=== PATIENT | male | born 1980 | race Caucasian/White ===

== ENCOUNTER 2016-06-20 14:16 | Inpatient (IN) | payer OTHER ==
[~2016-06-20] VITALS: Ht 172.7 cm; Wt 63.5 kg
[~2016-06-20 14:16] MED LIST: TRAMADOL HCL50 M1 PO; ZOFRAN ODT4 M1 PO
--- NOTE | 2016-06-20 14:36 | NUR ---
NOT IN WAITING ROOM WHEN CALLED FOR TRIAGE
--- NOTE | 2016-06-20 14:41 | NUR ---
35 Y/O MALE C/O LLQ PAIN SINCE LAST NIGHT. DENIES N/V/D. DENIES URINARY SYMPTOMS. AFEBRILE. PT NOTED TO HAVE ICED TEA - ADVISED TO REMAIN NPO UNTIL PROVIDER EVAL
--- NOTE | 2016-06-20 16:27 | NUR ---
PT IN ROOM 7. CHUCK RAMON IN TO SEE PT. PT ALREADY CHANGED INTO HOSP GOWN
--- NOTE | 2016-06-20 16:42 | NUR ---
LABS DRAWN AND SENT BY THIS [facility] ([facility],[place])
[2016-06-20 16:51] LABS: ABSOLUTE BASOPHIL COUNT 0.1 /CUMM (0.0-0.2); ABSOLUTE EOSINOPHIL COUNT 0.1 /CUMM (0.0-0.7); ABSOLUTE GRANULOCYTE CT 10.5 /CUMM (1.4-6.5); ABSOLUTE LYMPH COUNT 1.9 /CUMM (1.2-3.4); ABSOLUTE MONOCYTE COUNT 0.6 /CUMM (0.10-0.60); BASOPHIL % 0.7 % (0.0-2.0); EOSINOPHIL % 0.5 % (0-5); GRANULOCYTE % 80.3 % (42.2-75.2); HEMATOCRIT 46.7 % (42-52); MEAN CORPUSCULAR HGB 31.1 PG (27.0-31.0); MEAN CORPUSCULAR HGB CONC 34.1 G/DL (33.0-37.0); MEAN CORPUSCULAR VOLUME 91.2 FL (80.0-94.0); MEAN PLATELET VOLUME 7.6 FL (7.4-10.4); PLATELET COUNT 243 /CUMM (130-400); RBC DISTRIBUTION WIDTH 13.4 % (11.5-14.5); RED BLOOD CELL CT 5.12 /CUMM (4.70-6.10); WHITE BLOOD CELL COUNT 13.1 /CUMM (4.8-10.8)
--- NOTE | 2016-06-20 17:29 | NUR ---
IV STARTED. NS BOLUS STARTED, MAALOX AND PEPCID GIVEN.
--- NOTE | 2016-06-20 18:09 | NUR ---
PT INFORMED HE IS GOING TO BE ADMITTED FOR PANCREATITIS. GIVEN SECOND BAG OF IVF AND MORPHINE FOR PAIN.
--- NOTE | 2016-06-20 18:20 | ED GENERAL ADULT ---
History of Present Illness General Chief Complaint: Abdominal Pain/Flank Pain Stated Complaint: L SIDE ABD PAIN Source: patient Exam Limitations: no limitations Vital Signs & Intake/Output Vital Signs & Intake/Output Vital Signs Date Time Temp Pulse Resp B/P B/P Pulse O2 O2 Flow FiO2 Mean Ox Delivery Rate 06/21 0644 98.8 78 20 110/70 98 Room Air 06/21 0600 98.8 78 20 110/70 /16 0259 98.7 67 20 110/70 98 Room Air 06/21 0200 98.7 67 20 110/70 06/20 2115 97.8 84 18 124/60 99 Room Air 06/20 2059 97.9 69 16 144/89 98 Room Air 06/20 1808 99.1 73 18 141/82 100 Room Air 06/20 1730 Room Air 06/20 1440 97.7 108 16 125/83 98 Room Air ED Intake and Output 06/21 0000 06/20 1200 Intake Total 1250 Output Total Balance 1250 Intake, IV 1010 Intake, Oral 240 Patient 140 lb Weight Weight Reported by Patient Measurement Method Allergies Coded Allergies: NO KNOWN ALLERGIES (07/09/12) Reconcile Medications Loratadine 10 MG TABLET 1 TAB PO DAILY PRN ALLERGIES (Reported) Naltrexone Microspheres (Vivitrol) 380 MG JESUS.ER.REC 1 TAB PO Q30D HEROIN ADDICTION (Reported) Triage Note: 35 Y/O MALE C/O LLQ PAIN SINCE LAST NIGHT. DENIES N/V/D. DENIES URINARY SYMPTOMS. AFEBRILE. PT NOTED TO HAVE ICED TEA - ADVISED TO REMAIN NPO UNTIL PROVIDER EVAL Triage Nurses Notes Reviewed? yes HPI: 35-year-old male with past medical history of EtOH abuse and pancreatitis presenting with diffuse abdominal pain worse in the left lower quadrant since last night. Denies fevers, nausea, vomiting, diarrhea, dysuria. Reports Prior episodes of his pancreatitis presenting in a similar manner. Denies history of EtOH withdrawal or seizures, last EtOH use yesterday. (CHUCK WAKEFIELD PA-C) Past History Travel History Traveled to [place] past 21 day No Medical History Any Pertinent Medical History? see below for history Neurological: NONE EENT: allergies Cardiovascular: NONE Respiratory: asthma Gastrointestinal: pancreatitis Hepatic: NONE Renal: NONE Musculoskeletal: NONE Psychiatric: alcohol dependence Endocrine: NONE Blood Disorders: NONE Cancer(s): NONE Surgical History Surgical History: non-contributory Psychosocial History What is your primary language Malay Tobacco Use: Current Daily Use Daily Tobacco Use Amount/Type: => 5 Cigarettes daily Family History Hx Contributory? No (ASHU PAEZ,CHUCK) Review of Systems Review of Systems Constitutional: Denies: chills, fever. Respiratory: Reports: no symptoms. Cardiovascular: Reports: no symptoms. GI: Reports: abdominal pain. Denies: diarrhea, nausea, vomiting. Genitourinary: Denies: dysuria. (CHUCK WAKEFIELD PA-C) Physical Exam Physical Exam General Appearance: well developed/nourished, no apparent distress Respiratory: normal breath sounds, lungs clear Cardiovascular: regular rate/rhythm Gastrointestinal: normal bowel sounds, soft, tenderness (diffuse, no rebound/ guarding) Core Measures ACS in differential dx? No CVA/TIA Diagnosis: No Severe Sepsis Present: No Septic Shock Present: No (CHUCK WAKEFIELD PA-C) Progress Differential Diagnoses I considered the following diagnoses in my evaluation of the patient: [ Gastroenteritis versus pancreatitis versus biliary versus appendicitis versus colitis UTI versus diverticulitis. (] Plan of Care: Orders Procedure Date/time Status Regular Diet 06/21 B Active LIPASE 06/21 0600 Complete BASIC ELECTROLYTES PLUS BUN&CR 06/21 0600 Complete SOCIAL WORK CONSULT 06/21 UNK Active PSYCHIATRIC CONSULT 06/21 UNK Active Clear Liquid Diet 06/20 D Complete Vital Signs 06/20 2125 Complete Teach/Educate 06/20 2125 Active Pain Treatment and Response 06/20 2125 Active Nutritional Intake, Monitor 06/20 2125 Active Isolation 06/20 2125 Active Intake & Output 06/20 2125 Complete Patient Care Conference 06/20 2125 Active Activity/Ambulation 06/20 2125 Active Pathway - chart 06/20 2038 Active Pathway - chart 06/21 2027 Active House Staff 06/21 2027 Active Code Status 06/21 2027 Active Patient Data 06/20 2022 Active Patient Data 06/20 1923 Active Admit to inpatient 06/20 1800 Active Vital Signs 06/20 1800 Active Code Status 06/20 1800 Complete MAGNESIUM 06/20 1641 Complete CULTURE,URINE 06/20 1632 Active URINALYSIS 06/20 1632 Complete LIPASE 06/20 1632 Complete COMPREHENSIVE METABOLIC PANEL 06/20 1632 Complete CBC WITHOUT DIFFERENTIAL 06/20 1632 Complete Intake & Output 06/20 1628 Active Lab Add-on Test 06/20 UNK Active VTE Mechanical Prophylaxis 06/20 UNK Active CIWA 06/20 UNK Complete CIWA 06/20 UNK Active Current Medications Sig/Belle Start time Last Medication Dose Stop Time Status Admin Hydromorphone HCl 2 MG Q6P PRN 06/21 0900 AC (Dilaudid) Lorazepam 0 Q1P PRN 06/21 0845 AC (Ativan) Heparin Sodium 5,000 UNIT Q8 06/20 2200 AC 06/21 (Porcine) 0501 Nicotine 21 MG DAILY 06/20 2150 AC 06/20 (Nicoderm) 2322 Acetaminophen 650 MG Q6P PRN 06/20 2045 AC 06/21 (Tylenol) 0804 Cyanocobalamin/ 1 BAG DAILY 06/20 2026 AC 06/21 Thiamine/Pyridoxine 06/22 1759 0105 (Vitamin in I.V.) Sodium Chloride 1,000 ML (Normal Saline 0.9%) Laboratory Tests 06/21/16 0645: Anion Gap 11, Estimated GFR > 60, BUN/Creatinine Ratio 10.0, Lipase 1435 H 06/20/16 1830: Urine Color YEL, Urine Clarity CLEAR, Urine pH 6.5, Ur Specific [place] 1.010, Urine Protein NEG, Urine Ketones NEG, Urine Nitrite NEG, Urine Bilirubin NEG, Urine Urobilinogen 0.2, Ur Leukocyte Esterase NEG, Ur Microscopic EXAM NOT REQUIRED, Urine Hemoglobin NEG, Urine Glucose NEG 06/20/16 1641: Anion Gap 8, Estimated GFR > 60, BUN/Creatinine Ratio 15.0, Glucose 99, Calcium 8.9, Magnesium 1.8, Total Bilirubin 0.8, AST 31, ALT 46, Alkaline Phosphatase 93 , Total Protein 6.8, Albumin 4.0, Globulin 2.8, Albumin/Globulin Ratio 1.4, Lipase 1530 H, CBC w Diff NO MAN DIFF REQ, RBC 5.12, MCV 91.2, MCH 31.1 H, RDW 13.4, MPV 7.6, Gran % 80.3 H, Lymphocytes % 14.2 L, Monocytes % 4.3, Eosinophils % 0.5, Basophils % 0.7, Absolute Granulocytes 10.5 H, Absolute Lymphocytes 1.9, Absolute Monocytes 0.6, Absolute Eosinophils 0.1, Absolute Basophils 0.1, PUBS MCHC 34.1 Microbiology 05/15 1830 URINE ROUT: Urine Culture - RECD Lipase elevated to 1530. Given 2 L of normal saline, Zofran, morphine. Patient instructed to remain nothing by mouth. Will admit to general medicine. (CHUCK WAKEFIELD PA-C) Initial ED EKG: none (CHUCK WAKEFIELD PA-C) Departure Departure Disposition: STILL A PATIENT Condition: Stable Clinical Impression Primary Impression: Pancreatitis Referrals: SIVA SAEED,PAIGE Reyes (PCP/Family) Departure Forms: Customer Survey General Discharge Information Admission Note Spoke With: CALLUM BRICE MD Documentation of Exam: Documentation of any treatments & extenuating circumstances including Concerns Regarding Discharge (functional status, medication knowledge or non-compliance, living conditions, etc.) that warrant an admission rather than observation: [IV fluids, IV pain control, serial lipase levels.] (CHUCK WAKEFIELD PA-C) PA/BUSINESS UNIT LEADER Co-Sign Statement Statement: ED Attending supervision documentation- [] I saw and evaluated the patient. I have also reviewed all the pertinent lab results and diagnostic results. I agree with the findings and the plan of care as documented in the PA's/BUSINESS UNIT LEADER's documentation. [X] I have reviewed the ED Record and agree with the PA's/BUSINESS UNIT LEADER's documentation. [] Additions or exceptions (if any) to the PAs/BUSINESS UNIT LEADER's note and plan are summarized below: [] (MUKUL GHOSH DO) Critical Care Note Critical Care Note Critical Care Time: non-applicable (CHUCK WAKEFIELD PA-C)
--- NOTE | 2016-06-20 18:29 | NUR ---
PT UP TO RESTROOM TO PROVIDE URIEN SPECIMEN. DENIES PAIN RELIEF AFTER MORPHINE
[2016-06-20] MEDS ORDERED: VIVITROL PO (18:59)
[2016-06-20] MEDS ORDERED: LORATADINE10 M1 PO (18:59)
--- NOTE | 2016-06-20 19:00 | NUR ---
SISTER ARRIVED AT BEDSIDE AND INFORMED STAFF THAT PT HAS HEROIN ADDICTION HISTORY AND IS ON VIVATROL AT HOME. PT ADMITS TO USING HEROIN ABOUT A MONTH AGO. TAKE VIVATROL Q MONTH AND WAS DUE FOR DOSE ON MondayJUNE 17 BUT DID NOT YET TAKE IT BECAUSE INSURANCE VERIFICATION HAS DELAYED HIM GETTING SCRIPT
--- NOTE | 2016-06-20 19:01 | NUR ---
PT MEDICATED WITH MORPHINE FOR CONTINUED ABDOMINAL PAIN NOT RELIEVED AFTER FIRST DOSE OF MORPHINE
--- NOTE | 2016-06-20 19:41 | History & Physical ---
General Information and HPI Allergies/Medications Allergies: Coded Allergies: NO KNOWN ALLERGIES (07/09/12) Home Med list Loratadine 10 MG TABLET 1 TAB PO DAILY PRN ALLERGIES (Reported) Naltrexone Microspheres (Vivitrol) 380 MG JESUS.ER.REC 1 TAB PO Q30D HEROIN ADDICTION (Reported) Past History Travel History Traveled to [place] past 21 day No Medical History Neurological: NONE EENT: allergies Cardiovascular: NONE Respiratory: asthma Gastrointestinal: pancreatitis Hepatic: NONE Renal: NONE Musculoskeletal: NONE Psychiatric: alcohol dependence Endocrine: NONE Blood Disorders: NONE Cancer(s): NONE Surgical History Surgical History: none Past Family/Social History Psychosocial History ETOH Use: heavy use Illicit Drug Use: heroin Core Measures/Miscellaneous Severe Sepsis Severe Sepsis Present: No Septic Shock Septic Shock Present: No
--- NOTE | 2016-06-20 20:22 | NUR ---
PT GOING TO ROOM 224-1
--- NOTE | 2016-06-20 20:40 | NUR ---
REPORT CALLED TO [facility] ON GEN MED UNIT ROOM 224
--- NOTE | 2016-06-20 20:41 | NUR ---
PHARMACY CALLED AND ASKED TO PREPARE IVF. PHARMACY TO DELIVER IVF TO [facility] UNIT
--- NOTE | 2016-06-20 20:45 | History & Physical ---
CRISTÓBALGERALD HOLBROOK 06/20/162032: General Information and HPI MD Statement: I have seen and personally examined CHARLETTE COOPER and documented this H&P. The patient is a 35 year old M who presented with a patient stated chief complaint of [abdominal pain]. Source of Information: patient, old records Exam Limitations: no limitations History of Present Illness: 35-year-old gentleman with history of alcohol dependence alcohol abuse was admitted for alcoholic pancreatitis on the general medical floor observation. Patient presented in the [facility] emergency room in December 2015 for alcoholic pancreatitis and after spending a few hours in the ED as an observation was discharged home. He followed up with AA clinic and being sober from alcohol for a month about a week ago he started drinking on average about a pint of vodka a day. This morning about 6 AM patient's woke up with retching epigastric abdominal pain, bandlike, no radiation to back, was not associated with feeling nauseous, no vomits, no change in bowel habits. Pain remained constant with severity 5 out of 10. He did not take any measures to alleviate the pain. However he noticed that lying flat on his back makes the pain worse and due to his abdominal pain he avoided eating. Patient denies any fever, chills, urinary symptoms, chest pain, shortness of breath. Language barrier very limited history, social history as above, smoker 1 pack a day for a long time. Family history unremarkable. Sodium 135, potassium 3.8, lipase 1530, calcium 8.9, WBC 13.1, hematocrit 46.7, HAP score: 1 and white soft tissue score 0>>> implies not complicated pancreatitis which could be managed as an outpatient and list him on percent chance of complication a mortality. Allergies/Medications Allergies: Coded Allergies: NO KNOWN ALLERGIES (07/09/12) Home Med list Loratadine 10 MG TABLET 1 TAB PO DAILY PRN ALLERGIES (Reported) Compliance With Home Meds: GOOD Past History Travel History Traveled to [place] past 21 day No Medical History Neurological: NONE EENT: allergies Cardiovascular: NONE Gastrointestinal: pancreatitis Hepatic: NONE Renal: NONE Musculoskeletal: NONE Psychiatric: alcohol dependence Endocrine: NONE Blood Disorders: NONE Cancer(s): NONE Surgical History Surgical History: none Past Family/Social History Psychosocial History Where do you live? Home Who Do You Live With? spouse ETOH Use: heavy use Illicit Drug Use: heroin Functional Ability ADLs Independent: dressing, eating, toileting, bathing. Ambulation: independent IADLs Independent: shopping, housework, finances, food prep, telephone, transportation , medication admin. Review of Systems Review of Systems Constitutional: Reports: see HPI. Respiratory: Reports: no symptoms. GI: Reports: see HPI, abdominal pain. Denies: bloating, constipation, diarrhea, distention, bowel incontinence, melena, nausea, bloody stool, changes in stool, vomiting, steatorrhea. Genitourinary: Reports: no symptoms. Musculoskeletal: Reports: no symptoms. Skin: Reports: no symptoms. Exam & Diagnostic Data Last 24 Hrs of Vital Signs/I&O Vital Signs Date Time Temp Pulse Resp B/P B/P Pulse O2 O2 Flow FiO2 Mean Ox Delivery Rate 06/20 1808 99.1 73 18 141/82 100 Room Air 06/20 1730 Room Air 06/20 1440 97.7 108 16 125/83 98 Room Air Intake & Output 06/20 1600 06/20 0800 06/20 0000 Intake Total Output Total Balance Patient 140 lb Weight Weight Reported by Patient Measurement Method Physical Exam General Appearance Alert, Oriented X3, Cooperative, Mild Distress Skin No Rashes, No Breakdown, No Significant Lesion Cardiovascular Regular Rate, Normal S1, Normal S2 Lungs Clear to Auscultation, Normal Air Movement Abdomen Soft, No Tenderness, No Hepatospenomegaly Neurological Normal Gait Extremities No Clubbing, No Cyanosis, No Edema Vascular Normal Pulses, Pulses Symmetrical Last 24 Hrs of Labs/Alcides: Laboratory Tests 06/20/16 1830: Urine Color YEL, Urine Clarity CLEAR, Urine pH 6.5, Ur Specific [place] 1.010, Urine Protein NEG, Urine Ketones NEG, Urine Nitrite NEG, Urine Bilirubin NEG, Urine Urobilinogen 0.2, Ur Leukocyte Esterase NEG, Ur Microscopic EXAM NOT REQUIRED, Urine Hemoglobin NEG, Urine Glucose NEG 06/20/16 1641: Anion Gap 8, Estimated GFR > 60, BUN/Creatinine Ratio 15.0, Glucose 99, Calcium 8.9, Total Bilirubin 0.8, AST 31, ALT 46, Alkaline Phosphatase 93, Total Protein 6.8, Albumin 4.0, Globulin 2.8, Albumin/Globulin Ratio 1.4, Lipase 1530 H, CBC w Diff NO MAN DIFF REQ, RBC 5.12, MCV 91.2, MCH 31.1 H, RDW 13.4, MPV 7.6, Gran % 80.3 H, Lymphocytes % 14.2 L, Monocytes % 4.3, Eosinophils % 0.5, Basophils % 0.7, Absolute Granulocytes 10.5 H, Absolute Lymphocytes 1.9, Absolute Monocytes 0.6, Absolute Eosinophils 0.1, Absolute Basophils 0.1, PUBS MCHC 34.1 Microbiology 06/20 1830 URINE ROUT: Urine Culture - RECD Assessment/Plan Assessment: 35-year-old gentleman with history of heavy alcohol abuse/dependence was admitted for alcoholic pancreatitis. List of active problems #1 pancreatitis most possibly in this patient related to alcohol consumption. No history of medication that could possibly cause pancreatitis. Biceps score 0 ; HAP score 1: Indicated of mild pancreatitis with recent complication of less than 1%. * Admit to general medical floor as an observation * Start clear liquid diets * Continue IV hydration with banana back 125 mL per hour last bag * Pain management Tylenol 650 every 6 as needed for mild pain and IV hydeomorphone 1 mg every 6 h as needed for severe pain * By mouth Zofran 4 mg every 6 hours as needed for nausea * Repeat chemistry and lipase in the morning #2 alcohol dependence/withdrawal: History of heavy alcohol use. Last drink yesterday about a pint of vodka. Patient is not currently withdrawing from alcohol * Low-dose and high-dose by mouth Ativan perceive a score * Banana bag for hydration * Psych consult in the a.m. for alcohol dependence as needed DVT prophylaxis-heparin 5000 units every 8 hours Pain management as above Status full code As Ranked By This Provider Problem List: 1. Alcohol-induced pancreatitis 2. Alcohol abuse Core Measures/Miscellaneous Acute Coronary Syndrome ACS Diagnosis: No Cerebrovascular Accident CVA/TIA Diagnosis: No Congestive Heart Failure CHF Diagnosis: No Venous Thromboembolism VTE Risk Factors: Acute medical illness No [facility] VTE prophylaxis d/t: No contraindications No VTE Pharm Prophylaxis d/t: No contraindications VTE Diagnosis: No VTE Type: NONE VTE Confirmed by (Test): NONE Severe Sepsis Severe Sepsis Present: No Septic Shock Septic Shock Present: No Miscellaneous Documentation Attending Case Discussed With: CALLUM BRICE MD Primary Care Physician: PAIGE PANIAGUA MD, I Patient sees these Specialists porcelain technician Level of Patient Care: General Clinical Pharmacy Manager Review Statement Resident Statement: examined this patient, discussed with internet database specialist, agreed with internet database specialist, discussed with family, reviewed EMR data (avail), discussed with nursing , discussed with case mgmt, reviewed images, amended to note Attending MD Review Statement Attending Statement Attending MD Statement: examined this patient, discuss w/resident/PA/CRIMINAL INVESTIGATOR, agreed w/resident/PA/CRIMINAL INVESTIGATOR, discussed with family, reviewed EMR data (avail), discussed with nursing, discussed with case mgmt, reviewed images, amended to note [facility] SAEED[facility] 06/20/169: Attending MD Review Statement Attending Statement Attending MD Statement: examined this patient, discuss w/resident/PA/CRIMINAL INVESTIGATOR, agreed w/resident/PA/CRIMINAL INVESTIGATOR, discussed with family, reviewed EMR data (avail), discussed with nursing, reviewed images, amended to note Attending Assessment/Plan: 35 year old gentleman with limited Slovak proficiency, past medical history significant for alcohol abuse, polysubstance abuse and previous history of alcoholic pancreatitis comes in with epigastric pain and nausea. On examination, patient initially tachycardic due to dehydration and pain whihc improved with IV fluids and pain control. Mild epigastric tenderness on abd examination. lbas significant for leukocytosis, lipase 1530. Assessment and plan: Acute pancreatitis secondary to alcohol abuse, admission to the gen med floor, since patient is hungry start on clear liquid diet and will advance if able to tolerate, IV hydration/banana bag, pain control, when necessary zofran for nausea, IV Ativan per CIWA protocol for alcohol withdrawal, psych consult, social work consult, DVT prophylaxis, full code
--- NOTE | 2016-06-20 20:52 | NUR ---
PT STATES THE PHYSCIANS TOLD HIM WE WERE GOING TO PROVIDE HIM FOOD AND IF HE TOLERATED IT HE WAS GOING TO BE DISCHARGED. PAGED HOUSE STAFF ERSHACYNTHIA X2. PAGED MOD, AWAITING CALL BACK TO DISCUSS PLAN. WILL HOLD OFF ON SENDING PT UPSTAIRS UNTIL PLAN OF CARE CONFIRMED WITH MD COMER
--- NOTE | 2016-06-20 21:07 | NUR ---
DR MCPHERSON IN TO EXPLAIN PLAN FOR 23 HOUR OBS ADMISSION AND MAKE SURE PT CAN TOLERATE PO WITHOUT SEVERE PAIN BEFORE HE IS DISCHARGED
--- NOTE | 2016-06-20 21:08 | NUR ---
PT SENT TO [facility] ROOM VIA WHEELCHAIR
[2016-06-20 21:15] VITALS: BP 124/60
--- NOTE | 2016-06-20 21:15 | NUR ---
REPORT RECEIVED FROM TAYO MELGOZA IN ED. PT ARRIVE TO ROOM VIA DISTRIBUTION WITH SISTER AT BEDSIDE. REPORTS 7/10 PAIN L SIDE ABDOMEN/EPIGASTRIC AREA, MEDICATED WITH IV DILAUDID ORDERED. NO OTHER S/S DISTRESS OR COMPLAINTS AT THIS TIME. ROOM AIR. DENIES NAUSEA. ORIENTED TO CALL BUTTON AND ROOM. WILL CONTINUE TO MONITOR. VSS.
--- NOTE | 2016-06-20 23:15 | NUR ---
AT CHANGE OF SHIFT, BEDSIDE REPORT, NR FOR BED 2 STATED THAT THE ROOM SMELLED LIKE SMOKE. BOTH PATIENTS WERE ASKED IF THEY WERE SMOKING AND IF THEY HAVE CIGARETTES WITH THEM, BOTH DENIED. SECURITY CALLED TO SEARCH THE ROOM.
--- NOTE | 2016-06-20 23:19 | NUR ---
SECURITY FOUND SEAL MIXER IN BEDSIDE TABLE AND CIGARETTES IN JACKET POCKET OF THIS PATIENT. ITEMS PLACED IN MED ROOM.
[2016-06-21 02:00] VITALS: BP 110/70
[2016-06-21 02:59] VITALS: BP 110/70
[2016-06-21 06:00] VITALS: BP 110/70
[2016-06-21 06:44] VITALS: BP 110/70
--- NOTE | 2016-06-21 07:13 | PN- Housestaff ---
DENNIS SAUCEDO 06/21/16 0713: Subjective Follow-up For: Acute pancreatitis Alcohol withdrawal Complaints: pain scale (0-10) Subjective: Patient was seen and examined this morning. He is alert, awake and oriented to time place and person. No acute events noticed oOVERNIGHT. Patient denies any abdominal discomfort or pain this morning. He denies any nausea, vomiting. He tolerated his breakfast this morning. He is willing to go home this afternoon. His CIWA scores were 0. Denies any withdrawal symptoms. No problems with bladder or bowel movements. Vitals were stable Review of Systems Constitutional: Reports: see HPI. Objective Last 24 Hrs of Vital Signs/I&O Vital Signs Date Time Temp Pulse Resp B/P B/P Pulse O2 O2 Flow FiO2 Mean Ox Delivery Rate 06/21 0644 98.8 78 20 110/70 98 Room Air 06/21 0600 98.8 78 20 110/70 06/21 0259 98.7 67 20 110/70 98 Room Air 06/21 0200 98.7 67 20 110/70 06/20 2115 97.8 84 18 124/60 99 Room Air 06/20 2059 97.9 69 16 144/89 98 Room Air 06/20 1808 99.1 73 18 141/82 100 Room Air 06/20 1730 Room Air 06/20 1440 97.7 108 16 125/83 98 Room Air Intake & Output 06/21 1600 06/21 0800 06/21 0000 Intake Total 1040 1250 Output Total Balance 1040 1250 Intake, IV 800 1010 Intake, Oral 240 240 Patient 63.503 kg Weight Weight Reported by Patient Measurement Method Physical Exam General Appearance: Alert, Oriented X3, Cooperative, No Acute Distress Skin: No Rashes, No Breakdown, No Significant Lesion HEENT: Atraumatic, PERRLA, EOMI Neck: Supple, No JVD Lymphatic: Cervical nl Cardiovascular: Normal S1, Normal S2 Lungs: Normal Air Movement Abdomen: Normal Bowel Sounds, Soft, No Tenderness Extremities: No Clubbing, No Cyanosis, No Edema Vascular: Normal Pulses, Pulses Symmetrical Current Medications: Current Medications Sig/Belle Start time Last Medication Dose Route Stop Time Status Admin Acetaminophen 650 MG Q6P PRN 06/20 204 AC 06/21 PO 0804 Al Hydroxide/Mg 0 .STK-MED ONE 06/20 1731 DC Hydroxide PO Al Hydroxide/Mg 30 ML ONCE ONE 06/20 1645 DC 06/20 Hydroxide PO 06/20 1646 1735 Cyanocobalamin/ 1 BAG 0100 06/22 0100 AC Thiamine/Pyridoxine IV 06/23 0859 Sodium Chloride 1,000 ML Cyanocobalamin/ 1 BAG DAILY 06/20 2027 DC 06/21 Thiamine/Pyridoxine IV 06/22 1759 0105 Sodium Chloride 1,000 ML Famotidine 0 .STK-MED ONE 06/20 1731 DC IV Famotidine 20 MG ONCE ONE 06/20 1645 DC 06/20 IV 06/20 1646 1735 Heparin Sodium 5,000 UNIT Q8 06/20 2200 AC 06/21 (Porcine) SC 0501 Hydromorphone HCl 2 MG Q6P PRN 06/21 0900 AC PO Hydromorphone HCl 1 MG ONCE ONE 06/21 0830 DC 06/21 IV 06/21 0831 0855 Hydromorphone HCl 1 MG Q6P PRN 06/20 2045 DC 06/21 IV 0501 Lorazepam 0 Q1P PRN 06/21 0845 AC IV Lorazepam 2 MG Q2P PRN 06/20 2100 DC PO Lorazepam 1 MG Q2P PRN 06/20 2100 DC PO Morphine Sulfate 0 .STK-MED ONE 06/20 1847 DC .ROUTE Morphine Sulfate 5 MG ONCE ONE 06/20 1845 DC 06/20 IV 06/20 1846 1847 Morphine Sulfate 0 .STK-MED ONE 06/20 1809 DC .ROUTE Morphine Sulfate 5 MG ONCE ONE 06/20 1800 DC 06/20 IV 06/20 1801 1809 Nicotine 21 MG DAILY 06/20 2150 06/21 TOP 1121 Ondansetron HCl 4 MG Q6P PRN 06/20 2045 DC IV Sodium Chloride 1,000 ML BOLUS ONE 06/20 1800 DC 06/20 IV 06/20 1859 1809 Sodium Chloride 1,000 ML BOLUS ONE 06/20 1645 DC 06/20 IV 06/20 1744 1735 Last 24 Hrs of Lab/Alcides Results Last 24 Hrs of Labs/Mics: Laboratory Tests 06/21/16 0645: Anion Gap 11, Estimated GFR > 60, BUN/Creatinine Ratio 10.0, Lipase 1435 H 06/20/16 1830: Urine Color YEL, Urine Clarity CLEAR, Urine pH 6.5, Ur Specific Hamler 1.010, Urine Protein NEG, Urine Ketones NEG, Urine Nitrite NEG, Urine Bilirubin NEG, Urine Urobilinogen 0.2, Ur Leukocyte Esterase NEG, Ur Microscopic EXAM NOT REQUIRED, Urine Hemoglobin NEG, Urine Glucose NEG 06/20/16 1641: Anion Gap 8, Estimated GFR > 60, BUN/Creatinine Ratio 15.0, Glucose 99, Calcium 8.9, Magnesium 1.8, Total Bilirubin 0.8, AST 31, ALT 46, Alkaline Phosphatase 93 , Total Protein 6.8, Albumin 4.0, Globulin 2.8, Albumin/Globulin Ratio 1.4, Lipase 1530 H, CBC w Diff NO MAN DIFF REQ, RBC 5.12, MCV 91.2, MCH 31.1 H, RDW 13.4, MPV 7.6, Gran % 80.3 H, Lymphocytes % 14.2 L, Monocytes % 4.3, Eosinophils % 0.5, Basophils % 0.7, Absolute Granulocytes 10.5 H, Absolute Lymphocytes 1.9, Absolute Monocytes 0.6, Absolute Eosinophils 0.1, Absolute Basophils 0.1, PUBS MCHC 34.1 Microbiology 06/20 1830 URINE ROUT: Urine Culture - RES Assessment/Plan Assessment: 35-year-old gentleman with history of heavy alcohol abuse/dependence came in with epigastric abdominal pain and was admitted for alcoholic pancreatitis. Patient presented in the [facility] emergency room in December 2015 for alcoholic pancreatitis and after spending a few hours in the ED as an observation was discharged home. He followed up with AA clinic and being sober from alcohol for a month but about a week ago he started drinking on average about a pint of vodka a day. Vitals on admission-afebrile, heart rate 108, respiratory rate 16, blood pressure 125/83, saturating at 98% on room air. Pertinent labs on admission Leukocytosis 13,000, hemoglobin 15, hematocrit 46, platelet 243. Urine was clear. BEP normal Lipase elevated on admission-1530 Problem list 1. Acute pancreatitis secondary to alcohol abuse 2. Alcohol withdrawal 3. Reactive leukocytosis #1 pancreatitis most possibly in this patient related to alcohol consumption. No history of medication that could possibly cause pancreatitis. Bisap score 0 ; HAP score 1: Indicated of mild pancreatitis with complication of less than 1%. * Admit to general medical floor as an observation * Monitor vitals closely every shift * Monitor for any worsening abdominal pain, nausea, vomiting, chest pain. * Continue IV hydration with banana back 125 mL per hour. * Pain management Tylenol 650 every 6 as needed for mild pain and IV hydeomorphone 1 mg every 6 h as needed for severe pain * By mouth Zofran 4 mg every 6 hours as needed for nausea * Repeat chemistry and lipase in the morning - lipase coming down * Started on clear liquid diet - able to tolerate diet. #2 alcohol dependence/withdrawal: History of heavy alcohol use. Last drink yesterday about a pint of vodka. Patient is not currently withdrawing from alcohol * Low-dose and high-dose by mouth Ativan per CIWA. * Banana bag for hydration * Psych consulted * Denies any suicidal thoughts or homicidal thoughts. 3. Reactive leukocytosis Leukocyte count 13,000 on admission Possibly reactive elevation from pain and stress DVT prophylaxis-heparin 5000 units every 8 hours Pain management as above Status full code advanced to reg diet. Problem List: 1. Pancreatitis 2. Alcohol-induced pancreatitis Pain Ratin Pain Location: abdomen Pain Goal: Remain pain free Pain Plan: tylinol Tomorrow's Labs & Rationales: none ELADIO ORNELAS 06/21/16 1102: Attending MD Review Statement Attending Statement Attending MD Statement: examined this patient, discuss w/resident/PA/LONG TERM CARE ADMINISTRATOR, agreed w/resident/PA/LONG TERM CARE ADMINISTRATOR, discussed with family, reviewed EMR data (avail), discussed with nursing, discussed with case mgmt, reviewed images, amended to note Attending Assessment/Plan: 35 year old gentleman with limited Arabic proficiency, past medical history significant for alcohol abuse, polysubstance abuse and previous history of alcoholic pancreatitis comes in with epigastric pain and nausea. On examination, patient initially tachycardic due to dehydration and pain whihc improved with IV fluids and pain control. Mild epigastric tenderness on abd examination. lbas significant for leukocytosis, lipase 1530. Assessment and plan: Acute pancreatitis secondary to alcohol abuse, admission to the gen med floor, recieved IV hydration/banana bag, pain controlled, patient condition dramatically improved, tolerating PO, lipase trending down and wants to go home, aaox3 oriented, can d/c today.
[2016-06-21 10:00] VITALS: BP 124/80
--- NOTE | 2016-06-21 10:29 | Incdntl Nt Psy ---
Incidental Note Notation: as below Subjective Background: Consult requested for "EVAL" for this detox patient with no psychiatric complaint. Ordered by Dr. Dr. Luna, Dr. Harrington Attending 35-year-old single primarily Indonesian speaking male presents for EtOH detox. Denies any mood disturbance. No SI/HI/AVH. Alert and oriented 3. Declines follow-up psychiatric care. Review of Systems Constitutional: Reports: see HPI. Assessment/Plan Assessment: Patient is not a threat to self or others, or is gravely disabled. Plan: 1. Discussed case with resident, patient is psychiatrically cleared for discharge. 2. Appreciate SW consult for dispo planning. Thank you for including psychiatry in this case we'll sign off.
--- NOTE | 2016-06-21 11:43 | Patient Discharge Instructions ---
Discharge Instructions General Discharge Information You were seen/treated for: Acute pancreatitis You had these procedures: None Watch for these problems: Epigastric pain, nausea, vomiting Alcohol withdrawal Withdrawal seizures Special Instructions: Follow-up with your primary care doctor in 1-2 weeks Diet Continue normal diet: Yes Activity Full Activity/No Limits: Yes Acute Coronary Syndrome Inclusion Criteria At DC or during hospital stay patient has or had the following: ACS DIAGNOSIS No Discharge Core Measures Meds if any: Prescribed or Continued at Discharge Meds if any: NOT Prescribed or Continued at Discharge Congestive Heart Failure Inclusion Criteria At DC or during hospital stay patient has or had the following: CHF DIAGNOSIS No Discharge Core Measures Meds if any: Prescribed or Continued at Discharge Meds if any: NOT Prescribed or Continued at Discharge Cerebrovascular accident Inclusion Criteria At DC or during hospital stay patient has or had the following: CVA/TIA Diagnosis No Discharge Core Measures Meds if any: Prescribed or Continued at Discharge Meds if any: NOT Prescribed or Continued at Discharge Venous thromboembolism Inclusion Criteria VTE Diagnosis No VTE Type NONE VTE Confirmed by (Test) NONE Discharge Core Measures - Per Current guidelines, there needs to be overlap - treatment for the first 5 days of Warfarin therapy. - If discharged on Warfarin prior to 5 days of - overlap therapy, the patient will need to be - assessed for post discharge needs including - *Post discharge parental anticoagulation - *Warfarin and/or parental anticoagulation education - *Follow up date to check INR post discharge At least 5 days overlap therapy as Inpatient No Meds if any: Prescribed or Continued at Discharge Note: Overlap Therapy is Warfarin and Anticoagulant Meds if any: NOT Prescribed or Continued at Discharge
--- NOTE | 2016-06-21 12:43 | NUR ---
PT PACING HALLS ASKING WHEN HE CAN BE DISCHARGED. CIWA SCORE 0, VSS.
--- NOTE | 2016-06-21 13:42 | Discharge Summary ---
Visit Information Visit Dates Admission Date: 06/20/16 Discharge Date: 06/21/16 Hospital Course Course Attending Physician: CALLUM BRICE MD Primary Care Physician: SIVA SAEED,[place] Hospital Course: 35-year-old gentleman with history of heavy alcohol abuse/dependence came in with epigastric abdominal pain and was admitted for alcoholic pancreatitis. Patient presented in the [facility] emergency room in December 2015 for alcoholic pancreatitis and after spending a few hours in the ED as an observation was discharged home. He followed up with clinic and being sober from alcohol for a month but about a week ago he started drinking on average about a pint of vodka a day. Vitals on admission-afebrile, heart rate 108, respiratory rate 16, blood pressure 125/83, saturating at 98% on room air. Pertinent labs on admission Leukocytosis 13,000, hemoglobin 15, hematocrit 46, platelet 243. Urine was clear. BEP normal Lipase elevated on admission-1530 Problem list 1. Acute pancreatitis secondary to alcohol abuse 2. Alcohol withdrawal 3. Reactive leukocytosis #1 pancreatitis Acute pancreatitis most possibly secondary to alcohol consumption. No history of medication that could possibly cause pancreatitis. Bisap score 0 ; HAP score 1: Indicated of mild pancreatitis with complication of less than 1%. Patient was admitted to general medicine floor for observation. Vitals were monitored every shift. He was monitored for any worsening abdominal pain, nausea, vomiting, difficulty breathing, chest pain. He was given IV fluids and banana bag. Also started on Pain management Tylenol 650 every 6 as needed for mild pain and IV hydeomorphone 1 mg every 6 h as needed for severe pain. He was given By mouth Zofran 4 mg every 6 hours as needed for nausea. He was started on clear liquid diet and advance it to regular diets. He tolerated the diet. Repeat chemistry and lipase in the morning showed improvement. #2 alcohol dependence/withdrawal: History of heavy alcohol use. Last drink about a pint of vodka, before coming to the hospital. Patient has no signs of alcohol withdrawal in the hospital. He was kept on Low-dose and high-dose by mouth Ativan per ROSA. Banana bag was given for hydration. Denies any suicidal thoughts or homicidal thoughts. 3. Reactive leukocytosis Leukocyte count 13,000 on admission Possibly reactive elevation from pain and stress DVT prophylaxis-heparin 5000 units every 8 hours Pain management as above Status full code Complications: none Allergies: Coded Allergies: NO KNOWN ALLERGIES (07/09/12) Significant Procedures: none Pertinent Lab Results: none Disposition Summary Disposition Principal Diagnosis: Acute pancreatitis Alcohol withdrawal Additional Diagnosis: none Discharge Disposition: home or self care Discharge Instructions General Discharge Information Code Status: Full Code Patient's Diet: as tolerated Patient's Activity: as tolerated Follow-Up Instructions/Appts: Please follow-up with your primary care doctor in 1-2 weeks Medications at Discharge Discharge Medications: Stop taking the following medications: Naltrexone Microspheres (Vivitrol) 380 MG JESUS.ER.REC ORAL ONCE A MONTH Qty = 1 Continue taking these medications: Loratadine (Loratadine) 10 MG TABLET 1 Tablet ORAL DAILY as needed for ALLERGIES Qty = 30 Copies To: SIVA SAEED,PAIGE Reyes
--- NOTE | 2016-06-21 14:16 | NUR ---
Late Entry: Aware of patients discharge home this afternoon. Patient had been admitted to the hospital last evening (06/21) with acute pancreatitis( in the setting of chronic ETOH Dependence) after presentation to the emergency department. Max was placed on the CIWA for ETOH withdrawal; no s/s noted, and no medications required. I met with Max this am. He was alert, pleasant and engaged in interview. Max reports that he is in treatment at [facility] and has been receiving vivitrol. He further reports that he was due to be dosed yesterday or today. Call placed to [facility]. Spoke with Elva who reports that patient is accurately reporting this information. She reports that upon discharge, Max should contact [facility] to reschedule (as they are awaiting authorization from insurance company).
== END 2016-06-21 13:50 | DRG 282 ==
LOC: ERH 14:16 → ERHI 18:00 → 2NA 18:00 → ENRESERV 19:58 → 2NA 21:11 → ENPENDDIS 06-21 13:33 → 2NA 06-21 13:50
PROVIDERS: Physician Assistant; ADMIT Internal Medicine
DX: K85.20 Alcohol induced acute pancreatitis without necrosis or infection (principal); F10.239 Alcohol dependence with withdrawal, unspecified; F19.10 Other psychoactive substance abuse, uncomplicated; F17.200 Nicotine dependence, unspecified, uncomplicated; Y90.0 Blood alcohol level of less than 20 mg/100 ml; D72.829 Elevated white blood cell count, unspecified
CPT/HCPCS: 2NASP; 81003; 82436; 87086; 87147; 96361; 96374; 96375; 96376; J1644; J2405